=== PATIENT | female | born 1935 | race Caucasian/White ===

== ENCOUNTER 2024-05-17 15:20 | Outpatient (REF) | payer MEDICARE, SELFPAY ==
[2024-05-17 18:12] LABS: Prothrombin Time 67.7 sec (9.0-11.6)
[2024-05-17 18:13] LABS: INR 7.83
== END 2024-05-17 15:21 | disposition home or self-care (01) ==
LOC: LAB 15:20
DX: I48.91 Unspecified atrial fibrillation (principal)
CPT/HCPCS: 36415; 85610